=== PATIENT | female | born 1935 | race Caucasian/White ===

== ENCOUNTER 2020-10-19 06:42 | Outpatient (CLI) | payer MEDICARE, BC ==
[2020-10-19 11:47] LABS: Hemoglobin 11.5 g/dL (12.0-16.0); Mean Corpuscular HGB CONC 32.6 G/DL (32.0-36.0); Mean Corpuscular Volume 92.2 fl (80.0-100.0); Mean Platelet Volume 12.8 fl (7.4-10.4); Platelet Count 160 10x3/uL (130-400); RBC Distribution Width 12.3 % (11.5-14.5); Red Blood Cell (RBC) Count 3.83 10x6/uL (3.90-5.20); White Blood Cell (WBC) Count 8.9 10x3/uL (4.5-11.0)
[2020-10-19 12:00] LABS: Anion Gap 13 mmol/L (10-20); BUN (Urea Nitrogen) 16 mg/dL (9.8-20.1); Calc. Creatinine Clearance 0 mL/min (70-130); Carbon Dioxide 27 mmol/L (23-31); Chloride 103 mmol/L (98-107); Glucose 117 mg/dL (83-110); Potassium 4.4 mmol/L (3.5-5.1); Sodium 139 mmol/L (136-145)
[2020-10-19 12:01] LABS: PTT 28.5 sec (22.0-33.0); Prothrombin Time 10.8 sec (9.5-12.1)
[2020-10-19 17:11] LABS: SARS-CoV-2 MS2 Positive; SARS-CoV-2 N Gene Negative; SARS-CoV-2 S Gene Negative; SARS-CoV-2 by NAA Not Detected (NotDetected); SARS-CoV-2 orf1ab Negative
== END 2020-10-19 06:43 | disposition home or self-care (01) ==
LOC: LABBT 06:42
PROVIDERS: ATTEND Internal Medicine Cardiovascular Disease
DX: Z01.818 Encounter for other preprocedural examination (principal); Z20.822 Contact with and (suspected) exposure to COVID-19
CPT/HCPCS: 80048; 85027; 85610; 85730; 93005; U0003; 87635; 93010

== ENCOUNTER 2020-10-24 05:50 | Observation (INO) | payer MEDICARE, BC ==
[2020-10-24] MEDS ORDERED: Midazolam HCl 2 mg/2 ml Vial ONE (06:44)
[2020-10-24] MEDS ORDERED: Fentanyl 100 MCG/2 ML VIAL ONE ×4 (06:44→15:58)
[2020-10-24] MEDS ORDERED: CEFAZOLIN 1 GM VIAL ONE (06:51)
[2020-10-24] MEDS ORDERED: Heparin 0 ML ONE (06:51)
[2020-10-24] MEDS ORDERED: Gentamicin 80 MG/2 ML VIAL ONE (06:51)
[2020-10-24] MEDS ORDERED: PROPOFOL 40 ML ONE ×2 (07:20→08:52)
[2020-10-24] MEDS ORDERED: PROPOFOL 20 ML ONE (10:32)
[2020-10-24] MEDS ORDERED: PHENYLEPHRINE-NS 100 MCG/ML 10 ML SYRINGE ONE (11:18)
[2020-10-24] MEDS ORDERED: PROPOFOL 200 MG/20 ML VIAL ONE (11:18)
--- NOTE | 2020-10-24 11:42 | RAD ---
Exam: Chest one view HISTORY:Status post ICD placement Comparison: 06/02/2016 FINDINGS: Cardiac silhouette:Stable cardiac silhouette. ICD placement: Redemonstration of a left-sided transvenous defibrillator with lead positioned over th e right atrium, right ventricle and coronary sinus. There total 4 leads. One lead is from a remote generator. Aorta: Stable atherosclerosis Pulmonary vessels: Normal Costophrenic angles: Clear LUNGS: Diminished. Linear densities likely represent areas of atelectasis. Pneumothorax: None Osseous abnormalities: None IMPRESSION: 1. Left-sided transvenous defibrillator as above. 2. No pneumothorax. 3. Atherosclerosis.
[2020-10-24] MEDS ORDERED: Carvedilol 25 MG TAB PO SCH (13:15)
[2020-10-24] MEDS ORDERED: Propofol 500 MG/50 ML VIAL ONE (14:59)
[2020-10-24] MEDS ORDERED: Ondansetron HCl/PF 4 MG/2 ML Vial IVP PRN (16:20)
[2020-10-24] MEDS ORDERED: Promethazine HCl 25 MG/ML VIAL SLOW IVP PRN (16:20)
[2020-10-24] MEDS ORDERED: PACU-Morphine 4MG/ML VIAL SLOW IVP PRN (16:20)
[2020-10-24] MEDS ORDERED: Promethazine HCl 25 MG/ML VIAL IM PRN (16:20)
--- NOTE | 2020-10-24 17:09 | OP ---
DATE OF PROCEDURE: 10/24/2020 PROCEDURE PERFORMED: ICD pocket revision. REASON FOR PROCEDURE: Ms. Espinal is an 85-year-old woman with history of right ventricular lead malfunction. She is presenting for lead revision. She underwent new RV lead implantation and a new generator change earlier today, developed significant hematoma. She is here for a pocket revision. DESCRIPTION OF PROCEDURE: The patient received deep sedation by Anesthesia specialist. The left prepectoral area was prepped and draped, and anesthetized using subcutaneous lidocaine. The previous incision was opened up. Sutures removed. The device was evacuated from pocket. Significant amount of clotted hematoma was evacuated as well. Hemostasis was obtained with cautery as well as a D-Stat solution. The pre-existing Tyrx pouch was placed back again into the pocket along with the device. It was sutured to the prepectoral fascia and the wound was closed with 3 layers of sutures as well as Dermabond layer as well. The sutures used were Vicryl 2-0 and 3-0. Total blood loss about 100 mL. CONCLUSION: Successful hematoma evacuation and pocket revision. PLAN: Hold oral anticoagulants and pressure dressing placement. Monitor. Antibiotic therapy as planned. Job ID: [id number]
[2020-10-24] MEDS ORDERED: Acetaminophen/Codeine 30-300mg Tablet PO PRN ×2 (18:15)
[2020-10-24 18:20] VITALS: BMI 33.2
[2020-10-24] MEDS ORDERED: Labetalol HCl 100 MG/20 ML VIAL SLOW IVP PRN (18:31)
[2020-10-24] MEDS ORDERED: Morphine 2 MG/ML VIAL SLOW IVP PRN (18:32)
--- NOTE | 2020-10-24 18:41 | RAD ---
Portable frontal chest radiograph: 10/24/2020 COMPARISON: 10/24/2020 HISTORY: Status post cardiac device placement FINDINGS: This study is performed at 6:26 PM and compared to the prior study performed 11:28 AM. Stable multilead left-sided AICD. Heart and mediastinal contours are stable. No pneumothorax or pleur al fluid. No focal consolidation or alveolar edema. IMPRESSION: No significant interval change.
[2020-10-24] MEDS ORDERED: Gabapentin 300 MG CAP PO SCH (21:00)
[2020-10-24] MEDS ORDERED: Atorvastatin Calcium 10 MG TAB PO SCH (21:00)
[2020-10-24] MEDS ORDERED: Montelukast Sodium 10 mg Tablet PO SCH (21:00)
[2020-10-24] MEDS: Carvedilol 25 MG TAB PO SCH (21:17)
[2020-10-24] MEDS: Clindamycin/D5W 300 MG in Premix Bag 1 BAG IVPB SCH (21:19)
[2020-10-25] MEDS: Clindamycin/D5W 300 MG in Premix Bag 1 BAG IVPB SCH (05:32)
[2020-10-25 07:36] VITALS: BP 125/84; TEMP 98.5
[2020-10-25] MEDS ORDERED: metFORMIN 500 MG TAB PO SCH (08:00)
[2020-10-25] MEDS: Carvedilol 25 MG TAB PO SCH (08:56)
[2020-10-25] MEDS ORDERED: Cholecalciferol 1,000 UNITS (25 MCG) TAB PO SCH (09:00)
[2020-10-25] MEDS ORDERED: Losartan 25 MG TAB PO SCH (09:00)
[2020-10-25] MEDS ORDERED: Clindamycin 150 MG CAP PO SCH (14:00)
--- NOTE | 2020-10-26 00:49 | DIS ---
DATE OF ADMISSION: 10/24/2020 DATE OF DISCHARGE: 10/25/2020 A 24-hour observation. HISTORY OF PRESENT ILLNESS: Ms. Espinal is an 85-year-old woman with a history of cardiomyopathy and resynchronization defibrillator. There is a concern for lead integrity and she was taken to the EP lab for lead revision. Her LV lead was seen to be working well, but RV lead impedance was over 3000 and new RV lead was placed. Following her initial procedure, she did develop hematoma and required pocket revision with hematoma evacuation. TYRX pouch was used. Overnight, she has had no further bleeding complications with a pressure dressing in place. She feels well and is eager to go home. SUBJECTIVE: Positive for mild tenderness at the incision site in the left chest wall. Otherwise, 8-point review of systemswas negative. The patient feels stable and eager to go home. She is ambulating normally, eating and drinking, voicing no concerns. OBJECTIVE: VITAL SIGNS: Temperature 98.5, pulse 75, blood pressure 125/84, respirations 16, and oxygen 96% on room air. GENERAL: The patient is alert, oriented. Speech is clear. Affect is appropriate. She is in no apparent distress, resting comfortably in bed at the time of the exam. NECK: Supple without jugular venous distention. CHEST: There is a pressure dressing over the left chest wall at the ICD revision site. There is some bruising noted, but no significant hematoma has developed overnight. Overall, site is stable. ABDOMEN: Soft, nontender without palpable masses. Hepatojugular reflux is negative. EXTREMITIES: Warm and dry to touch. Well perfused without clubbing, cyanosis, or edema. NEUROLOGIC: Grossly intact and nonfocal. Gait is stable. DIAGNOSTIC STUDIES: Chest x-ray, post implant is stable without evidence of pneumothorax or pleural effusion. Device check is stable this morning. DISCHARGE MEDICATIONS: Resuming home medications of: 1. Vitamin D. 2. Metformin. 3. . 4. Zocor. 5. Glipizide. 6. Avapro. 7. Gabapentin. 8. Coreg. Plavix on hold to be resumed on 10/28/2020. New prescription for clindamycin 300 mg p.o. q.8 hours x7 days submitted electronically. DISCHARGE INSTRUCTIONS: Take medications as prescribed. Contact [facility] with any postprocedure concerns or concern for infection at the implant site. Do not lift the left arm above head or do any heavy lifting for 2 to 3 weeks post implant. No bowling for 4 weeks as she is an avid bowler. Wound/device check in 2 weeks. CONDITION AT DISCHARGE: Stable. PROCEDURES PERFORMED: Include RV lead revision, hematoma evacuation, pocket revision. Job ID: [id number]
[2020-10-26] MEDS ORDERED: Clopidogrel Bisulfate 75 MG TAB PO SCH (09:00)
== END 2020-10-25 10:19 | disposition home or self-care (01) ==
LOC: SDC 05:50 → 2NO 16:21
PROVIDERS: ADMIT Internal Medicine Cardiovascular Disease; ATTEND Internal Medicine Cardiovascular Disease
PROC: 02H63JZ Insertion of Pacemaker Lead into Right Atrium, Percutaneous Approach (ICD-10-PCS; principal; 2020-10-24)
PROC: 0JPT0PZ Removal of Cardiac Rhythm Related Device from Trunk Subcutaneous Tissue and Fascia, Open Approach (ICD-10-PCS; 2020-10-24)
PROC: 0JH609Z Insertion of Cardiac Resynchronization Defibrillator Pulse Generator into Chest Subcutaneous Tissue and Fascia, Open Approach (ICD-10-PCS; 2020-10-24)
DX: I42.8 Other cardiomyopathies (principal); I50.22 Chronic systolic (congestive) heart failure; E11.9 Type 2 diabetes mellitus without complications; Z79.02 Long term (current) use of antithrombotics/antiplatelets; Z79.84 Long term (current) use of oral hypoglycemic drugs; Z79.899 Other long term (current) drug therapy
CPT/HCPCS: 33216; 33264; 36005; 71045; 75820; 76942; 82962; 90732; 93005; C1882; C1898; C1900; G0009; 36416; 90471; 96374; 96376; G0378; J0690; J1580; J1644; J2250; J2704; J3010; J3370; J3490